=== PATIENT | female | born 1965 | race Caucasian/White ===

== ENCOUNTER → 2016-08-03 | Outpatient (CLI) | payer BC ==
[2016-08-03 15:43] LABS: Basophils % (A) 1 %; Eosinophils # (A) 0.2 k/uL (0-0.7); Eosinophils % (A) 6 %; HDW 2.11; HGB 13.6 gm/dL (11.4-16.0); Luc % (Auto) 3; Lymphocytes # (A) 0.7 k/uL (1.0-4.8); Lymphocytes % (A) 19 %; MCH 31.4 pg (25.0-35.0); MCHC 33.3 g/dL (31.0-37.0); MCV 94.2 fL (80.0-100.0); Mean Platelet Volume 7.5; Monocytes # (A) 0.4 k/uL (0-1.0); Monocytes % (A) 10 %; Neutrophils # (A) 2.3 k/uL (1.3-7.7); Neutrophils % (A) 61 %; RBC 4.35 m/uL (3.80-5.40); RDW 12.5 % (11.5-15.5); WBC 3.8 k/uL (3.8-10.6); WBC (Perox) 4.09
[2016-08-03 20:02] LABS: ANA w/Reflex to Titer NEGATIVE (NEGATIVE)
[2016-08-04 13:52] LABS: Scleroderma 70 Antibody 4 UNITS (<20)
[2016-08-04 14:50] LABS: C-ANCA <1:20 Titer (<1:20); P-ANCA <1:20 Titer (<1:20)
== END | disposition home or self-care (01) ==
LOC: LABWHC1 14:44
PROVIDERS: ATTEND Nurse Practitioner Family
DX: M06.9 Rheumatoid arthritis, unspecified (principal); K11.20 Sialoadenitis, unspecified; K13.70 Unspecified lesions of oral mucosa
CPT/HCPCS: 36415; 84165; 85025; 86038; 86235; 86255; 86334

== ENCOUNTER → 2016-08-14 | Outpatient (CLI) | payer BC ==
--- NOTE | 2016-08-14 10:08 | CT ---
EXAMINATION TYPE: CT soft tissue neck w con DATE OF EXAM: 08/14/2016 8:37 AM HISTORY: Left sided swelling marked by BB. COMPARISON: NONE CT DLP: 326 mGycm. Automated Exposure Control for Dose Reduction was Utilized. TECHNIQUE: CT scan of the neck is performed with IV Contrast, patient injected with 100 mL of Omnipa que 300, axial images are obtained, coronal and sagittal reformatted images are reviewed. FINDINGS: A vitamin E marker is placed at level of palpable abnormality left mandibular level on axial image 27 . Normal-appearing masseter muscles are identified symmetric to opposite right side. No worrisome vicente id or cystic mass or abnormal fluid collection is seen. Airway: No gross abnormality seen. Parotid/submandibular glands: No gross abnormality seen. Carotid/Vascular Structures: Dominant right vertebral artery is incidentally noted. No significant pl aque at carotid bulb level is present bilaterally. Osseous Structures: No significant abnormality is seen. Other: Parapharyngeal fat spaces are symmetric and maintained. Some scattered subcentimeter lymph nod es throughout the neck are seen bilaterally. No greater than 1 cm neck adenopathy is clearly identifi ed. IMPRESSION: No significant abnormality is seen at level of palpable mass left mandibular level.
== END ==
LOC: RADCTMAIN 08:05
PROVIDERS: ATTEND Otolaryngology
DX: R22.1 Localized swelling, mass and lump, neck (principal)
CPT/HCPCS: 70491; Q9967

== ENCOUNTER → 2018-10-02 | Outpatient (CLI) | payer BC ==
--- NOTE | 2018-10-02 11:10 | ECHOF ---
Referral Reason:R06.00 Dyspnea MEASUREMENTS -------- HEIGHT: 167.6 cm WEIGHT: 72.6 kg BP: 114/67 RVIDd: 2.8 cm (< 3.3) IVSd: 1.0 cm (0.6 - 1.1) LVIDd: 3.5 cm (3.9 - 5.3) LVPWd: 0.9 cm (0.6 - 1.1) IVSs: 1.4 cm LVIDs: 2.4 cm LVPWs: 1.5 cm LA Diam: 2.7 cm (2.7 - 3.8) LAESV Index (A-L): 15.01 ml/m Ao Diam: 3.1 cm (2.0 - 3.7) AV Cusp: 2.0 cm (1.5 - 2.6) MV EXCURSION: 17.310 mm (> 18.000) MV EF SLOPE: 122 mm/s (70 - 150) EPSS: 0.5 cm MV E Harjit: 0.81 m/s MV DecT: 242 ms MV A Harjit: 0.51 m/s MV E/A Ratio: 1.59 RAP: 5.00 mmHg RVSP: 17.13 mmHg FINDINGS -------- Sinus rhythm. This was a technically adequate study. The left ventricular size is normal. Left ventricular wall thickness is normal. Overall left vent ricular systolic function is normal with, an EF between 60 - 65 %. The right ventricle is normal in size. Normal LA size by volume 22+/-6 ml/m2. The right atrium is normal in size. Interatrial and interventricular septum intact. The aortic valve is trileaflet and appears structurally normal. The mitral valve is normal. Mild tricuspid regurgitation present. Right ventricular systolic pressure is normal at < 35 mmHg. The pulmonic valve was not well visualized. The aortic root size is normal. Normal inferior vena cava with normal inspiratory collapse consistent with estimated right atrial pre ssure of 5 mmHg. There is no pericardial effusion. CONCLUSIONS -------- 1. Sinus rhythm. 2. This was a technically adequate study. 3. The left ventricular size is normal. 4. Left ventricular wall thickness is normal. 5. Overall left ventricular systolic function is normal with, an EF between 60 - 65 %. 6. The right ventricle is normal in size. 7. Normal LA size by volume 22+/-6 ml/m2. 8. The right atrium is normal in size. 9. Interatrial and interventricular septum intact. 10. The aortic valve is trileaflet and appears structurally normal. 11. The mitral valve is normal. 12. Mild tricuspid regurgitation present. 13. Right ventricular systolic pressure is normal at < 35 mmHg. 14. The pulmonic valve was not well visualized. 15. The aortic root size is normal. 16. Normal inferior vena cava with normal inspiratory collapse consistent with estimated right atrial pressure of 5 mmHg. 17. There is no pericardial effusion. RECONCILIATION COORDINATOR: Dianne Caro RDCS
== END | disposition home or self-care (01) ==
LOC: RADECHMAIN 08:31
PROVIDERS: ATTEND Family Medicine
DX: I07.1 Rheumatic tricuspid insufficiency (principal)
CPT/HCPCS: 93306